=== PATIENT | male | born 1955 | race Caucasian/White ===

== ENCOUNTER → 2018-08-23 09:07 | Outpatient (CLI) | payer OTHER, SELFPAY ==
[2018-08-23 10:21] LABS: Add Manual Diff / Slide Review NO; Basophils Absolute Auto 0 /uL (0-100); Basophils Percent Auto 0.4 % (0-2); Eosinophils Absolute Auto 100 /uL (0-450); Eosinophils Percent Auto 1.9 % (2-4); Hematocrit 40.2 % (41-53); Hemoglobin 13.7 g/dL (13.5-17.5); Lymphocytes Absolute Auto 900 /uL (1100-4500); Lymphocytes Percent Auto 16.8 % (25-40); Mean Corpuscular HGB Conc 34.1 % (30-36); Mean Corpuscular Hemoglobin 35.2 PG (26-34); Mean Corpuscular Volume 103.4 fL (80-100); Monocytes Absolute Auto 500 /uL (0-900); Monocytes Percent Auto 8.8 % (3-14); Neutrophils Absolute Auto 4100 /uL (1500-7000); Neutrophils Percent Auto 72.1 % (50-75); Platelet Count 218 X10^3/uL (150-400); Red Blood Cell Count 3.89 X10^6/uL (4.5-5.9); Red Cell Distribution Width 13.2 % (11.6-14.8); White Blood Cell Count 5.6 X10^3/uL (4.5-11.0)
[2018-08-23 10:36] LABS: Alanine Aminotransferase 68 IU/L (21-72); Albumin 4.3 g/dL (3.5-5.0); Albumin Globulin Ratio 1.1 (1.0-2.8); Alkaline Phosphatase 75 U/L (38-126); Aspartate Aminotransferase 76 IU/L (17-59); BUN Creatinine Ratio 15.8 (6-22); Bilirubin Total 0.5 mg/dL (0.2-1.3); Blood Urea Nitrogen 19 mg/dL (9-20); Calcium 9.4 mg/dL (8.4-10.2); Carbon Dioxide 26 mmol/L (22-32); Chloride 102 mmol/L (98-107); Cholesterol 125 mg/dL (140-199); Estimated Glomerular Filt Rate > 60.0 mL/min (>60); Globulin 3.9 g/dL (1.7-4.1); Glucose 111 mg/dL (80-110); HDL Cholesterol 40 mg/dL (40-60); HEMOLYSIS < 15 (0-50); LDL Cholesterol Calculated 55 mg/dL (<100); Sodium 137 mmol/L (137-145); Total Protein 8.2 g/dL (6.3-8.2); Triglycerides 151 mg/dL (35-150)
[2018-08-23 11:46] LABS: Hep C Virus Ab w/Reflex Quant REACTIVE s/c (NEGATIVE)
== END ==
PROVIDERS: PCP Student in an Organized Health Care Education/Training Program; Visit Provider Student in an Organized Health Care Education/Training Program
DX: I10 Essential (primary) hypertension (principal); K21.9 Gastro-esophageal reflux disease without esophagitis; I73.9 Peripheral vascular disease, unspecified; E78.2 Mixed hyperlipidemia; Z11.59 Encounter for screening for other viral diseases; Z85.819 Personal history of malignant neoplasm of unspecified site of lip, oral cavity, and pharynx
CPT/HCPCS: 36415; 80053; 80061; 85025; 86803; 87522

== ENCOUNTER 2018-10-11 08:24 | Day surgery (SDC) | payer OTHER, SELFPAY ==
[2018-10-11] VITALS (7 sets, daily range): BP systolic 92–120; BP diastolic 56–73; PULSE 62–77; RESP 11–17; TEMP 36.2–36.5; O2SAT 94–100; BMI 23.7
--- NOTE | 2018-10-11 | PATH_ITS ---
[facility] Accession Number: [id number] . 01 Material submitted: . PART A: SIGMOID POLYP X2 PART B: ASCENDING POLYP PART C: TRANSVERSE POLYP . 02 Diagnosis: A. Sigmoid Colon, Polyps x2, Biopsies: Tubular adenomas. . B. Ascending Colon, Polyp, Biopsy: Tubular adenoma. . C. Transverse Colon, Polyp, Biopsy: Tubular adenoma. MRV/10/12/2018 . 02 Electronically signed: . Deidra Adler MD, Pathologist NPI- [id number] . 01 Gross description: . Received three formalin-filled containers, each labeled with the patient's name: . A. In a container labeled sigmoid polyp, the specimen consists of two 0.2-0.5 cm portions of tissue, entirely submitted in cassette A. B. In a container labeled ascending colon polyp, the specimen consists of a 0.7 cm portion of tissue, entirely submitted in cassette B. C. In a container labeled transverse polyp, the specimen consists of a 0.6 cm portion of tissue, entirely submitted in cassette C. ([id number]) /FRR . 02 Pathologist provided ICD-10: D12.2, D12.3, D12.5 . 02 CPT . 670961, 503722, 069728 Performed at: 01 [facility] [address] [place] [address], [place], [place] [id number] MD Amos Gomez MD Phone: [phone] Performed at: 02 [facility] [address] [place], [place] [id number] MD Deidra Adler MD Phone: [phone]
[2018-10-11] MEDS: SODIUM CHLORIDE 0.9% 1,000 ML 200 ML IV (10:20)
--- NOTE | 2018-10-11 10:36 | PM.HP.1 ---
History of Present Illness Chief complaint: [id number] SCREENING COLONOSCOPY Patient History Social History household members: spouse Family & Social History Social History: household members spouse Meds Home Medications Medication Instructions Recorded Confirmed Type lidocaine HCl 5 ml PO TIDAC #0 02/17/11 10/11/18 History chlorhexidine gluconate [Peridex] 15 ml PO QDAY #0 04/26/17 10/11/18 History oxycodone 5 ml PO Q4HP PRN #0 04/26/17 10/11/18 History metoprolol tartrate 25 mg PO QDAY #0 05/04/17 10/11/18 History atorvastatin 40 mg PO DAILY 10/11/18 10/11/18 History losartan 100 mg PO DAILY 10/11/18 10/11/18 History oxycodone-acetaminophen [Percocet] 1 tab PO Q4HP PRN 10/11/18 10/11/18 History Allergies Allergy/AdvReac Type Severity Reaction Status Date / Time aspirin Allergy Severe causes Verified 10/11/18 08:59 ulcers ibuprofen [From Advil] Allergy Severe causes Verified 10/11/18 08:59 ulcers sulfamethoxazole Allergy Severe open sore Verified 10/11/18 08:59 [From SEPTRA] hives trimethoprim [From SEPTRA] Allergy Severe open sore Verified 10/11/18 08:59 hives atorvastatin [ATORVASTATIN] AdvReac Severe elevated Verified 10/11/18 08:59 lft's Review of Systems Review of Systems All systems reviewed & are unremarkable except as noted in HPI and below Exam Vital Signs (past 8 hours): - 10/11/18 09:06 Temperature 97.7 F Pulse Rate 77 Respiratory Rate 16 Blood Pressure 120/73 Pulse Oximetry 98 Oxygen Delivery Method Room Air Narrative Exam Narrative: Awake alert oriented x3, pupils equal round reactive to light, lungs clear to auscultation, heart regular rate and rhythm, abdomen soft, nontender, nondistended, no lower extremity edema Assessment & Plan Assessment & Plan narrative: Colonoscopy for colon cancer screening
[2018-10-11] MEDS: MIDAZOLAM 5 MG/5 ML VIAL IV (10:55)
[2018-10-11] MEDS: fentaNYL 250 MCG/5 ML INJ IV (10:55)
--- NOTE | 2018-10-11 11:24 | P.OP.ENDO_ITS ---
Operative Date/Time/Diagnoses Date of procedure: 10/11/18 Procedure & Clinicians Study performed: Colonoscopy with hot and cold snare, hemoclip, injection Moderate conscious sedation was administered by the endoscopy nurse and supervised by the endoscopist. The following parameters were monitored: Oxygen saturation, heart rate, blood pressure, and response to care. Sedation: 4 mg midazolam, 150 mcg fentanyl Indications: Colon cancer screening Procedure Notes Procedure in detail: Prior to the procedure, history and physical was performed, and patient medications and allergies were reviewed. Preprocedure nursing history and assessment was reviewed. Patient identification and proposed procedure were verified by the physician and nurse in the procedure room. The physical status of the patient was reassessed after the procedure. After informed consent was obtained including risks, benefits, and alternatives, the scope was passed under direct vision. Throughout the procedure, the patient's blood pressure, pulse, and oxygen saturations were monitored continuously. The colonoscope was introduced through the anus and advanced to the cecum as identif ied by the appendiceal orifice and ileocecal valve. The patient tolerated the procedure well. Bowel prep was deemed adequate to detect polyps greater than 5 mm. LEANNE and perianal examinations were unremarkable. Retroflexion in the rectum revealed grade 1 internal hemorrhoids A 4 mm sessile polyp was noted in the sigmoid colon. This was removed with a cold snare and retrieved. A 6 mm semi pedunculated polyp was removed from the sigmoid colon with a hot snare. Hemoclip was applied for prevention of bleeding A 7 mm sessile polyp was removed from the transverse colon with a hot snare. A 12 mm sessile polyp was noted in the ascending colon. A submucosal injection with saline was performed and the polyp was resected EN bloc with a hot snare. A hemoclip was applied to the defect. Spot injected a solution was injected with a scleral needle adjacent to polypectomy site for tattooing Impression: Internal hemorrhoids 4 mm polyp removed from the sigmoid colon with a cold snare A 6 mm and a 7 mm polyp removed from the sigmoid colon and transverse colon with a hot snare. A 12 mm polyp injected with saline and removed from the ascending colon with a hot snare. Area tattooed Hemoclips applied to the polypectomy sites at the ascending colon and sigmoid colon Sedation minutes: 25 Complications: other (EBL minimal. No complications) Plan for aftercare: Follow-up pathology results Repeat colonoscopy in today to be determined based on pathology results Resume home medications Resume previous diet Discharge home
== END 2018-10-11 12:25 | disposition home or self-care (01) ==
PROVIDERS: PCP Student in an Organized Health Care Education/Training Program; Visit Provider Internal Medicine
PROC: 0DJD8ZZ Inspection of Lower Intestinal Tract, Via Natural or Artificial Opening Endoscopic (ICD-10-PCS; CPT 45378; principal; 2018-10-11 10:00)
DX: Z12.11 Encounter for screening for malignant neoplasm of colon (principal); K64.0 First degree hemorrhoids
CPT/HCPCS: 45381; 45385; 45382; J2250; J3010

== ENCOUNTER → 2019-08-16 14:45 | Outpatient (ROUT) | payer OTHER, SELFPAY ==
[2019-08-16 15:37] LABS: Add Manual Diff / Slide Review NO; Basophils Absolute Auto 0 /uL (0-100); Eosinophils Absolute Auto 100 /uL (0-450); Eosinophils Percent Auto 1.8 % (2-4); Hematocrit 39.2 % (41-53); Hemoglobin 13.5 g/dL (13.5-17.5); Lymphocytes Absolute Auto 900 /uL (1100-4500); Lymphocytes Percent Auto 18.2 % (25-40); Mean Corpuscular HGB Conc 34.4 % (30-36); Mean Corpuscular Hemoglobin 36.1 PG (26-34); Mean Corpuscular Volume 104.8 fL (80-100); Monocytes Absolute Auto 500 /uL (0-900); Monocytes Percent Auto 9.1 % (3-14); Neutrophils Absolute Auto 3500 /uL (1500-7000); Neutrophils Percent Auto 69.9 % (50-75); Platelet Count 188 X10^3/uL (150-400); Red Blood Cell Count 3.74 X10^6/uL (4.5-5.9); Red Cell Distribution Width 13.2 % (11.6-14.8)
[2019-08-16 15:44] LABS: Alanine Aminotransferase 39 IU/L (<50); Albumin Globulin Ratio 1.1 (1.0-2.8); Alkaline Phosphatase 78 U/L (38-126); Aspartate Aminotransferase 61 IU/L (17-59); BUN Creatinine Ratio 17.5 (6-22); Bilirubin Total 0.5 mg/dL (0.2-1.3); Blood Urea Nitrogen 21 mg/dL (9-20); Calcium 9.7 mg/dL (8.4-10.2); Carbon Dioxide 32 mmol/L (22-32); Chloride 99 mmol/L (98-107); Cholesterol 104 mg/dL (140-199); Estimated Glomerular Filt Rate > 60.0 mL/min (>60); Globulin 3.8 g/dL (1.7-4.1); Glucose 98 mg/dL (80-110); HDL Cholesterol 41 mg/dL (40-60); HEMOLYSIS < 15 (0-50); LDL Cholesterol Calculated 37 mg/dL (<100); Potassium 4.6 mmol/L (3.4-5.1); Sodium 136 mmol/L (137-145); Total Protein 7.8 g/dL (6.3-8.2); Triglycerides 131 mg/dL (35-150)
== END ==
PROVIDERS: PCP Student in an Organized Health Care Education/Training Program; Visit Provider Student in an Organized Health Care Education/Training Program
DX: I10 Essential (primary) hypertension (principal); I73.9 Peripheral vascular disease, unspecified; E78.2 Mixed hyperlipidemia
CPT/HCPCS: 80053; 80061; 85025

== ENCOUNTER → 2019-09-07 10:41 | Outpatient (CLI) | payer OTHER, SELFPAY ==
--- NOTE | 2019-09-07 | DI.US.S_ITS ---
PROCEDURE: US ABD AORTA ANEURYSM SCREEN INDICATIONS: HYPERTENSIVE HEART DISEASE TECHNIQUE: Real time scanning was performed of the aorta and iliac arteries, with image documentation. COMPARISON: [facility], CT, CT ABDOMEN PELVIS WITH CONTRAST, 08/30/2017, 15:28. FINDINGS: Aorta: Proximal aortic diameter measures 1.8 cm. Mid-aorta measures 1.6 cm. Distal aortic diameter is 1.3 cm. Iliac arteries: Right common iliac artery measures 0.7 cm. Left common iliac artery measures 0.7 cm. There is a patent aortobiiliac stent seen. IMPRESSION: Patent aortobiiliac stent. No daryl aneurysm is seen. Dictated by: Reilly Ortega M.D. on 09/07/2019 at 12:19 Approved by: Reilly Ortega M.D. on 09/07/2019 at 12:20
== END ==
PROVIDERS: PCP Student in an Organized Health Care Education/Training Program; Referring Provider Student in an Organized Health Care Education/Training Program; Visit Provider Student in an Organized Health Care Education/Training Program
DX: Z13.6 Encounter for screening for cardiovascular disorders (principal); I11.0 Hypertensive heart disease with heart failure
CPT/HCPCS: 76706

== ENCOUNTER → 2020-01-28 18:25 | Outpatient (ROUT) | payer OTHER, SELFPAY ==
[2020-01-28 19:16] LABS: Add Manual Diff / Slide Review NO; Basophils Absolute Auto 0 /uL (0-100); Basophils Percent Auto 0.4 % (0-2); Eosinophils Absolute Auto 100 /uL (0-450); Eosinophils Percent Auto 0.9 % (2-4); Hematocrit 34.1 % (41-53); Hemoglobin 11.8 g/dL (13.5-17.5); Lymphocytes Absolute Auto 900 /uL (1100-4500); Lymphocytes Percent Auto 14.5 % (25-40); Mean Corpuscular HGB Conc 34.7 % (30-36); Mean Corpuscular Hemoglobin 35.3 PG (26-34); Mean Corpuscular Volume 101.6 fL (80-100); Monocytes Absolute Auto 500 /uL (0-900); Monocytes Percent Auto 7.8 % (3-14); Neutrophils Absolute Auto 4600 /uL (1500-7000); Neutrophils Percent Auto 76.4 % (50-75); Platelet Count 234 X10^3/uL (150-400); Red Blood Cell Count 3.35 X10^6/uL (4.5-5.9); Red Cell Distribution Width 14.1 % (11.6-14.8)
[2020-01-28 19:22] LABS: Alanine Aminotransferase 43 IU/L (<50); Albumin 3.9 g/dL (3.5-5.0); Alkaline Phosphatase 83 U/L (38-126); Aspartate Aminotransferase 67 IU/L (17-59); Bilirubin Total 0.3 mg/dL (0.2-1.3); Blood Urea Nitrogen 29 mg/dL (9-20); Carbon Dioxide 26 mmol/L (22-32); Chloride 99 mmol/L (98-107); Estimated Glomerular Filt Rate 48.8 mL/min (>60); Glucose 89 mg/dL (80-110); HEMOLYSIS < 15 (0-50); Potassium 4.5 mmol/L (3.4-5.1); Sodium 134 mmol/L (137-145); Total Protein 7.9 g/dL (6.3-8.2)
[2020-01-30 09:44] LABS: HEMOLYSIS < 15 (0-50); Iron 61 ug/dL (49-181)
[2020-01-30 09:54] LABS: Percent Iron Saturation 20 % (20-50); Total Iron Binding Capacity 312 ug/dL (261-462); Transferrin 227 mg/dL (206-381)
[2020-01-30 11:10] LABS: Ferritin 212 ng/mL (18-464)
[2020-01-30 18:18] LABS: Folate 18.1 ng/mL (2.76-20.0)
== END ==
PROVIDERS: PCP Student in an Organized Health Care Education/Training Program; Visit Provider Student in an Organized Health Care Education/Training Program
DX: R06.02 Shortness of breath (principal); R42 Dizziness and giddiness; I10 Essential (primary) hypertension; E78.2 Mixed hyperlipidemia; Z87.891 Personal history of nicotine dependence
CPT/HCPCS: 80053; 82728; 82746; 83540; 83550; 85025

== ENCOUNTER → 2020-03-26 07:38 | Outpatient (CLI) | payer OTHER, MEDICARE, SELFPAY ==
--- NOTE | 2020-03-26 | DI.MRI.S_ITS ---
PROCEDURE: MR HEAD/BRAIN WO/W CON INDICATIONS: Other nonspecific abnormal finding of lung field TECHNIQUE: Noncontrast axial T1 spin echo, axial T2 fast spin echo, sagittal and axial FLAIR, coronal T2 fast spin echo, axial gradient echo, axial diffusion and ADC through the brain. After the administration of contrast, axial and coronal T1 spin echo with fat saturation through the brain. COMPARISON: [facility], MR, [id number] W&WO CONTRAST, 09/10/2014, 7:16. [facility], CT, HEAD WITHOUT CONTRAST, 06/07/2017, 16:18. FINDINGS: Image quality: Diagnostic, with note made of motion artifact. CSF spaces: Basal cisterns are patent. No extra-axial fluid collections. Ventricles are normal in size and shape. Brain: Within the right frontal lobe, there is a rim enhancing mass seen that measures 13 by 11 millimeters, as on series 13, image 80. Surrounding vasogenic edema is seen. There is also a rim enhancing mass seen within the left medial cerebellum, as on series 13, image 38 measuring 18 by 16 millimeters in greatest axial dimension. This lesion demonstrates mild susceptibility artifact, reflecting internal hemorrhage, as on series 10, image 6. Surrounding edema is seen. There is an additional small focus of enhancement seen within the left parietal lobe, as on series 13 image 97 measuring 6 millimeters, with mild associated edema. These lesions demonstrate mild restricted diffusion, which is reflective of their highly cellular nature. No midline shift. There is cerebral volume loss for age. There is periventricular white matter chronic small vessel ischemic change. The brainstem appears normal. Diffusion-weighted images demonstrate no acute ischemic insults. Normal intravascular flow voids are present. There is a prominent left cerebellar developmental venous anomaly, as on series 13, image 38. This is stable compared to 2014. Skull and face: Calvarial marrow is normal in signal. Orbits appear normal. Sinuses: No significant paranasal sinus abnormality is seen. Moderate right mastoid air cell fluid is seen. No significant left mastoid air cell fluid is seen. IMPRESSION: Intracranial metastatic disease, with 2 rim enhancing masses and an additional focus of mild enhancement seen. The left cerebellar lesion demonstrates internal hemorrhage. No findings of acute or subacute infarction can be seen. 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 Dictated by: Reilly Ortega M.D. on 03/26/2020 at 8:34 Approved by: Reilly Ortega M.D. on 03/26/2020 at 8:47
== END ==
PROVIDERS: PCP Student in an Organized Health Care Education/Training Program; Referring Provider Student in an Organized Health Care Education/Training Program; Visit Provider Internal Medicine Hematology & Oncology
DX: C79.31 Secondary malignant neoplasm of brain (principal); C80.1 Malignant (primary) neoplasm, unspecified; R91.8 Other nonspecific abnormal finding of lung field
CPT/HCPCS: 70553